=== PATIENT | male | born 2005 | race African-American/Black ===

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

== ENCOUNTER 2025-01-01 17:58 | Emergency (ER) | payer BC | END 2025-01-01 20:11 | disposition home or self-care (01) | LOC: ERS 17:58 | DX: K13.0 Diseases of lips (principal); F17.210 Nicotine dependence, cigarettes, uncomplicated | CPT/HCPCS: 87081; 87428; 87430; 99283 ==